=== PATIENT | female | born 1935 | race Caucasian/White ===

== ENCOUNTER 2020-09-24 00:18 | Inpatient (IN) ==
[2020-09-24] MEDS ORDERED: MoRPHine SULFATE 4 MG/ML 1 ML CARP\\VIAL IV PRN (00:35)
[2020-09-24] MEDS ORDERED: ONDANSETRON INJ 2 MG/ML 2 ML VIAL IV STA (00:35)
--- NOTE | 2020-09-24 00:37 | Emergency Department Note ---
Impression & Plan Acute cholecystitis, Epigastric abdominal pain, Acute pancreatitis, Gallstones ED Provider Note NAME: ALTAGRACIA TREVIÑO AGE: 85 SEX: F : 1935 ARRIVES VIA: Walk-In INFORMANT: Patient, ED PROVIDER(S): Wilber Burr DO CHIEF COMPLAINT: Chest pain HPI: The patient is an 85-year-old female who presented to the emergency d [facility] for an evaluation of epigastric pain. The patient thought she was having indigestion. Her family members gave her some Tums and she did have an episode of nausea and then vomiting. The patient states the pain is moderately improved. She also noticed bilateral tingling in her upper extremities. The patient is currently being treated for non-small cell lung cancer. She does not have a history of pulmonary embolism. She denies having any leg pain or leg swelling. She states the pain was epigastric and went straight through to her back. She denies having any diarrhea. She denies having any rectal bleeding. She denies having any difficulty breathing at this time. She was recently treated with radiation and is scheduled to start chemotherapy upcoming but her laboratory studies did not allow this because her white blood cell count was too low. She denies having any fever or cough. She states her pain initially was worsened with palpation on her upper abdomen. ROS: See above HPI for pertinent positives & negatives. A total of 10 systems reviewed and were otherwise negative. PAST MEDICAL HISTORY: See Below PAST SURGICAL HISTORY: See Below FAMILY HISTORY: See Below SOCIAL HISTORY: See Below HOME MEDICATIONS: See Below ALLERGIES: See Below VITALS: See Below PHYSICAL EXAMINATION: GENERAL: The patient is awake and alert. The patient is somewhat anxious appearing. EYES: The conjunctivae are clear. The pupils are round and reactive. EARS, NOSE, MOUTH AND THROAT: The nose is without any evidence of any deformity. NECK: The neck is nontender and supple. RESPIRATORY: Normal respiratory effort is noted there is no evidence of wheezing rhonchi or rales CARDIOVASCULAR: Regular rate and rhythm noted there no murmurs rubs or gallops normal S1 normal S2. GASTROINTESTINAL: The abdomen is mildly distended. There is no tenderness guarding rigidity. MUSCULOSKELETAL/EXTREMITIES: There is no evidence of gross deformity full range of motion is noted in the hips and shoulders. SKIN: Trace pedal edema was noted. Skin was warm and dry. Pulses were symmetric in both feet. There was calf tenderness noticed on the left to palpation. NEUROLOGIC: Patient is awake alert and oriented x3. MEDICAL DECISION MAKING: The patient is an 85-year-old female who presented to the emergency department for an evaluation of epigastric pain. The patient had an acute onset of epigastric pain as well as back pain. She did not have a pulsatile mass on physical exam. The patient's pain improved significantly. She was treated with IV pain medication and IV antiemetics. She was also given IV antibiotics. Laboratory studies did reveal an elevation in her LFTs as well as her lipase. Ultrasound did reveal signs of kidney stones as well as a dilated gallbladder and possible signs of cholecystitis. I discussed the patient's laboratory and radiographic studies with her. Given her findings the [facility] was notified about the patient. The patient may require further inpatient management and testing. Triage Nursing notes reviewed. Prior medical records reviewed Vital Signs: reviewed and remarkable for elevated blood pressure. Differential diagnosis: Cardiac ischemia, aortic dissection, pulmonary embolism, pneumothorax, pneumonia, pericarditis, myocarditis, esophageal rupture, GERD, cholecystitis, pancreatitis, musculoskeletal, as well as other pathologies. ER treatment provided: See below Diagnostics interpreted by me: ECG: EKG was obtained in the emergency department. My interpretation is normal sinus rhythm at 65 bpm. There was no ectopy. Inferior T wave inversions were noted. No previous tracing was available. Cardiac Monitoring: An order was placed for continuous cardiac monitoring. The monitor shows a rate of 87 bpm with sinus rhythm. Laboratory studies: As stated above and show below. Imaging studies: See below Consultation(s): 0225: I discussed this case with Dr. Gill who is on-call for the [facility] hospitalist group. He is agreed to evaluate the patient in the emergency department. 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 Beliefs That Will Affect Care: None and Nondenominational marital status: / Current Living Situation: Alone current occupational status: retired Other Information That Helps Us Care for You: No Feels Safe at Home: Yes Safety Concerns: Feels Safe At This Time Diet Comment: Avoids salad and dairy caffeine: Yes Dental Care, Regularly: Yes Physical Activity Frequency: 5-6 Times per Week Assistive Devices: Hearing Aid - Bilateral Allergies Allergies Allergy/AdvReac Type Severity Reaction Status Date / Time cat dander Allergy itchy Verified 09/24/20 01:46 eyes, sneeze strawberry Allergy Anaphylaxis Verified 09/24/20 01:46 Home Meds Home Medications Medication Instructions Recorded Confirmed ascorbic acid (vitamin C) 500 mg 500 mg PO DAILY cap 07/07/20 09/24/20 capsule aspirin 81 mg chewable tablet 81 mg PO DAILY 07/07/20 09/24/20 cranberry 500 mg capsule 500 mg PO DAILY cap 07/07/20 09/24/20 zinc gluconate 50 mg tablet 50 mg PO DAILY 07/07/20 09/24/20 fexofenadine 60 mg tablet (Josefa 60 mg PO DAILY tab 08/07/20 09/24/20 Allergy) cholecalciferol (vitamin D3) 25 25 mcg PO BID 09/24/20 09/24/20 mcg (1,000 unit) tablet (Vitamin D3) metoprolol succinate 50 mg 50 mg PO DAILY 09/24/20 09/24/20 tablet,extended release 24 hr olmesartan 40 mg tablet 40 mg PO DAILY 09/24/20 09/24/20 vit C 250 mg-vit E 90 mg-zinc 40 1 tab PO QAM 09/24/20 09/24/20 mg-copper 1 [id number] capsule (PreserVision AREDS-2) Previous Rx's Medication Instructions Recorded nystatin-triamcinolone 100,000 1 applic TOPICAL QID #60 g 07/10/20 unit/gram-0.1 % topical ointment clobetasol 0.05 % topical ointment 1 applic TOPICAL BID #60 g 09/14/20 Results & Data (ED) Vital Signs Vital Signs - 24 hr 09/24/20 00:21 09/24/20 00:58 09/24/20 01:03 Temperature 36 C L Temperature Source Temporal Artery Scan Pulse Rate 77 87 Pulse Rate [Finger] 84 Respiratory Rate 20 Blood Pressure 187/74 H Blood Pressure [Right Arm] 157/80 H Blood Pressure Mean 111 Blood Pressure Mean [Right Arm] 105 Pulse Oximetry 98 98 97 Oxygen Delivery Method Room Air Room Air Room Air Sepsis Recent Fever Within 48 Hours No Sepsis New/Unexplained Change in Mental Status No Sepsis Action Taken by Nursing No Action Required 09/24/20 02:24 Temperature Temperature Source Pulse Rate Pulse Rate [Finger] 87 Respiratory Rate Blood Pressure Blood Pressure [Right Arm] 163/90 H Blood Pressure Mean Blood Pressure Mean [Right Arm] 114 Pulse Oximetry 98 Oxygen Delivery Method Room Air Sepsis Recent Fever Within 48 Hours Sepsis New/Unexplained Change in Mental Status Sepsis Action Taken by [facility] Medications Current Medication List: was personally reviewed by me Laboratory Data Attestation: I reviewed the patient's lab results. Result diagrams: 09/24/20 00:40 09/24/20 05:33 Lab Results 09/24/20 09/24/20 09/24/20 Range/Units 00:40 00:40 00:40 WBC 5.23 (4.8-10.8) K/uL RBC 4.66 (4.2-5.4) M/uL Hgb 14.3 (12.0-16.0) g/dL Hct 41.2 (37-47) % MCV 88.4 (80-100) fL MCH 30.7 (25-34) pg MCHC 34.7 (32-36) g/dL RDW Std Deviation 43.7 (36.4-46.3) fL RDW Coeff of Katarzyna 13.5 (11.5-14.5) % Plt Count 140 (130-400) K/uL MPV 10.2 (7.4-10.4) fL Immature Gran % (Auto) 0.6 % Neut % (Auto) 79.3 % Lymph % (Auto) 11.5 % [place] % (Auto) 8.2 % Eos % (Auto) 0.2 % Baso % (Auto) 0.2 % Neut # (Auto) 4.15 (1.4-6.5) K/uL Lymph # (Auto) 0.60 L (1.2-3.4) K/uL [place] # (Auto) 0.43 (0.11-0.59) K/uL Eos # (Auto) 0.01 (0-0.5) K/uL Baso # (Auto) 0.01 (0-0.2) K/uL Immature Gran # (Auto) 0.03 H (0.00-0.02) K/uL PT 10.8 (9.0-12.0) Seconds INR 1.1 (0.9-1.1) APTT 21.6 (21.0-31.0) Seconds PTT Ratio 0.8 Sodium 140 (136-145) mmol/L Potassium 3.9 (3.5-5.1) mmol/L Chloride 107 (98-107) mmol/L Carbon Dioxide 25 (21-32) mmol/L Anion Gap 8.0 (3-11) BUN 11 (7-18) mg/dl Creatinine 0.72 (0.6-1.2) mg/dl Est Cr Clr Drug Dosing 51.9 ml/min Est GFR ( Amer) 88.5 ml/min Est GFR (Non-Af Amer) 76.4 ml/min BUN/Creatinine Ratio 15.7 (10-20) Glucose 188 H (70-99) mg/dl Calcium 9.4 (8.5-10.1) mg/dl Total Bilirubin 2.3 H (0.2-1) mg/dl AST 179 H (15-37) U/L ALT 107 H (12-78) U/L Alkaline Phosphatase 224 H (45-117) U/L Troponin I < 0.015 (0-0.045) ng/ml Total Protein 7.3 (6.4-8.2) gm/dl Albumin 3.4 (3.4-5.0) gm/dl Globulin 3.9 (2.5-4.0) gm/dl Albumin/Globulin Ratio 0.9 (0.9-2) Lipase 684 H (73-393) U/L Urine Color Urine Appearance (Clear) Urine pH (4.5-7.5) Ur Specific [place] (1.000-1.030) Urine Protein (Negative) Urine Glucose (UA) (Negative) Urine Ketones (Negative) Urine Blood (Negative) Urine Nitrite (Negative) Urine Bilirubin (Negative) Urine Urobilinogen (Negative) Ur Leukocyte Esterase (Negative) Urine WBC (Auto) (0-5) /hpf Urine RBC (Auto) (0-4) /hpf U Hyaline Cast (Auto) (0-5) /lpf U Epithel Cells (Auto) (0-5) /lpf Urine Bacteria (Auto) (Negative) COVID-19 Eval Order SARS-CoV-2 (PCR) (Negative) 09/24/20 09/24/20 09/24/20 Range/Units 01:00 01:33 01:33 WBC (4.8-10.8) K/uL RBC (4.2-5.4) M/uL Hgb (12.0-16.0) g/dL Hct (37-47) % MCV (80-100) fL MCH (25-34) pg MCHC (32-36) g/dL RDW Std Deviation (36.4-46.3) fL RDW Coeff of Katarzyna (11.5-14.5) % Plt Count (130-400) K/uL MPV (7.4-10.4) fL Immature Gran % (Auto) % Neut % (Auto) % Lymph % (Auto) % [place] % (Auto) % Eos % (Auto) % Baso % (Auto) % Neut # (Auto) (1.4-6.5) K/uL Lymph # (Auto) (1.2-3.4) K/uL [place] # (Auto) (0.11-0.59) K/uL Eos # (Auto) (0-0.5) K/uL Baso # (Auto) (0-0.2) K/uL Immature Gran # (Auto) (0.00-0.02) K/uL PT (9.0-12.0) Seconds INR (0.9-1.1) APTT (21.0-31.0) Seconds PTT Ratio Sodium (136-145) mmol/L Potassium (3.5-5.1) mmol/L Chloride (98-107) mmol/L Carbon Dioxide (21-32) mmol/L Anion Gap (3-11) BUN (7-18) mg/dl Creatinine (0.6-1.2) mg/dl Est Cr Clr Drug Dosing ml/min Est GFR ( Amer) ml/min Est GFR (Non-Af Amer) ml/min BUN/Creatinine Ratio (10-20) Glucose (70-99) mg/dl Calcium (8.5-10.1) mg/dl Total Bilirubin (0.2-1) mg/dl AST (15-37) U/L ALT (12-78) U/L Alkaline Phosphatase (45-117) U/L Troponin I (0-0.045) ng/ml Total Protein (6.4-8.2) gm/dl Albumin (3.4-5.0) gm/dl Globulin (2.5-4.0) gm/dl Albumin/Globulin Ratio (0.9-2) Lipase (73-393) U/L Urine Color Dark Yellow Urine Appearance Clear (Clear) Urine pH 6.0 (4.5-7.5) Ur Specific [place] 1.023 (1.000-1.030) Urine Protein 1+ H (Negative) Urine Glucose (UA) Negative (Negative) Urine Ketones 2+ H (Negative) Urine Blood 1+ H (Negative) Urine Nitrite Negative (Negative) Urine Bilirubin 1+ H (Negative) Urine Urobilinogen Negative (Negative) Ur Leukocyte Esterase Trace H (Negative) Urine WBC (Auto) 1-5 (0-5) /hpf Urine RBC (Auto) 10-30 H (0-4) /hpf U Hyaline Cast (Auto) 1-5 (0-5) /lpf U Epithel Cells (Auto) >30 H (0-5) /lpf Urine Bacteria (Auto) Negative (Negative) COVID-19 Eval Order Covid19 at [facility] SARS-CoV-2 (PCR) NEGATIVE (Negative) Administered Medications Sodium Chloride (Nss 1000ml) 1,000 mls @ 125 mls/hr IV .Q8H [facility]SMAN Stop: 10/24/20 06:29 Last Admin: 09/24/20 07:55 Dose: 125 mls/hr Documented by: [id number] Piperacillin Sod/Tazobactam (Sod 3.375 gm/ Dextrose) 115 mls @ 28.75 mls/hr IV Q8H [facility]; Protocol Stop: 09/26/20 07:59 Last Admin: 09/24/20 07:55 Dose: 28.8 mls/hr Documented by: [id number] Metoprolol Succinate (Metoprolol Succ 50mg Ext Rel Tab) 50 mg PO DAILY [facility] Stop: 10/24/20 08:59 Last Admin: 09/24/20 09:01 Dose: Not Given Documented by: [id number] Olmesartan (Olmesartan Medoxomil 40 Mg Tab) 40 mg PO DAILY [facility] Stop: 10/24/20 08:59 Last Admin: 09/24/20 08:54 Dose: 40 mg Documented by: [id number] Discontinued Medications Pantoprazole Sodium 40 mg/ (Syringe) 10 mls @ 5 mls/min IV NOW ONE Stop: 09/24/20 01:12 Last Admin: 09/24/20 01:29 Dose: 5 mls/min Documented by: [id number] Famotidine (Pepcid 20mg Iv Push) 20 mg in 5 mls @ 2.5 mls/min IV NOW STA Stop: 09/24/20 01:12 Last Admin: 09/24/20 01:29 Dose: 2.5 mls/min Documented by: [id number] Piperacillin Sod/Tazobactam Sod (Zosyn) 4.5 gm in 120 mls @ 240 mls/hr IV NOW ONE Stop: 09/24/20 02:38 Last Infusion: 09/24/20 02:53 Dose: 0 mls/hr Documented by: [id number] Admin: 09/24/20 02:21 Dose: 240 mls/hr Documented by: [id number] Sodium Chloride (Nss 1000ml) 2,000 mls @ 999 mls/hr IV .Q2H1M ONE Stop: 09/24/20 06:31 Last Infusion: 09/24/20 07:55 Dose: 0 mls/hr Documented by: [id number] Admin: 09/24/20 05:31 Dose: 999 mls/hr Documented by: [id number] Ioversol (Optiray 320 100ml) 95 ml IV ONCE ONE Stop: 09/24/20 03:22 Last Admin: 09/24/20 03:21 Dose: 95 ml Documented by: [id number] Morphine Sulfate (Morphine Sulfate 4 Mg/Ml 1 Ml Carp\Vial) 4 mg IV Q15M PRN PRN Reason: Pain Stop: 10/08/20 00:34 Last Admin: 09/24/20 00:47 Dose: 4 mg Documented by: [id number] Ondansetron HCl (Ondansetron Inj 2 Mg/Ml 2 Ml Vial) 4 mg IV NOW STA Stop: 09/24/20 00:36 Last Admin: 09/24/20 00:47 Dose: 4 mg Documented by: [id number] Imaging Data Attestation: I personally reviewed and interpreted this imaging study as follows: My Impression: KUB was obtained in the emergency department. My interpretation is nonspecific bowel gas pattern noted. There was no free air. No acute disease was noted 1 view chest x-ray was obtained in the emergency department. My interpretation is heart size is normal. There is no free air or infiltrate. There was s hadowing noted in the left upper lung field. This could be consistent with the patient's known history of non-small cell carcinoma. Radiologist's Impression: Chest X-Ray 09/24/20 00:35 XR chest 1V portable CLINICAL HISTORY: epigastric pain COMPARISON STUDY: No previous studies for comparison. FINDINGS: No pneumothorax. No pleural effusion. Hazy opacity is seen within left suprahilar region and could represent atelectasis or consolidative process within left upper lung. Cardiomediastinal silhouette is within normal limits in size. No significant pulmonary vascular congestion.. Aorta is calcified. Osseous structures: Degenerative changes of the spine. IMPRESSION: 1. Left suprahilar opacity might represent atelectasis or pneumonia. ACT 112: Negative or not required by law. The above report was generated using voice recognition software. It may contain grammatical, syntax or spelling errors. Electronically signed by: Jovita Mao DO 09/24/2020 8:58 AM KUB X-Ray 09/24/20 00:35 XR KUB/Abdomen 1 view CLINICAL HISTORY: epigastric pain COMPARISON STUDY: No previous studies for comparison. FINDINGS: Multiple gas and stool filled nondilated loops of bowel are seen throughout the abdomen. Large amount of stool is seen within left hemiabdomen. Lung apices are outside the [id number] which limits evaluation. Mild lumbar scoliosis and degenerative changes of the spine are seen. Calcified densities are seen within the right pelvic region which might represent phleboliths. IMPRESSION: 1. Constipation pattern. ACT 112: Negative or not required by law. The above report was generated using voice recognition software. It may contain grammatical, syntax or spelling errors. Electronically signed by: Jovita Mao DO 09/24/2020 9:00 AM Gallbladder Ultrasound 09/24/20 01:09 ULTRASOUND RIGHT UPPER QUADRANT ABDOMEN CLINICAL HISTORY: Epigastric abdominal pain. COMPARISON STUDY: Abdominal radiograph dated 09/24/2020. TECHNIQUE: Real-time, grayscale, and color flow sonography of the right upper quadrant of the abdomen was performed. Images are reviewed in the transverse and longitudinal planes. FINDINGS: Liver: The liver is normal in size and echotexture. There is no intrahepatic biliary ductal dilatation. The main portal vein is patent. Gallbladder: There are numerous shadowing calcified gallstones. The gallbladder is distended. The gallbladder wall appears mildly thickened and edematous measuring up to 4 mm. A sonographic Yin's sign is reportedly absent. The common bile duct measures up to 0.5 cm in diameter. Pancreas: Visualized portions of the pancreatic head and body are normal in appearance. The splenic vein is patent. Right kidney: Survey images of the right kidney demonstrate mild cortical atrophy. Echotexture is normal. There is no hydronephrosis. Ascites: None. IMPRESSION: Cholelithiasis within a distended gallbladder. The bladder wall appears mildly thickened and edematous, and findings are suspicious for acute cholecystitis. ACT 112: Negative or not required by law. Electronically signed by: Mina Amor M.D. 09/24/2020 6:53 AM Abdomen/Pelvis CT 09/24/20 02:46 CT SCAN OF THE ABDOMEN AND PELVIS WITH IV CONTRAST CLINICAL HISTORY: Upper abdominal pain. COMPARISON STUDY: Abdominal ultrasound dated 09/24/2020. Chest CT dated 05/09/2020. PET CT dated 05/20/2020. TECHNIQUE: Following the IV administration of 95 cc of Optiray 320, CT scan of the abdomen and pelvis is performed from the lung bases to the proximal femora. Images are reviewed in the axial, sagittal, and coronal planes. IV contrast was administered without complication. A dose lowering technique was utilized adhering to the principles of ALARA. CT DOSE: 329.66 mGy.cm FINDINGS: Lung bases: The heart is normal in size and without pericardial effusion. The lung bases are clear noting bibasilar scarring/atelectasis. A small to moderate hiatal hernia is noted. Liver: The contrast-enhanced liver is normal in size, contour, and attenuation. There is no intrahepatic biliary ductal dilatation. The hepatic veins and portal veins are patent. Gallbladder: The gallbladder is distended and there are numerous gallstones. The gallbladder wall is thickened and edematous and there is pericholecystic stranding and fluid. Findings are consistent with acute cholecystitis. Spleen: Normal in size and attenuation. Pancreas: Unremarkable. Adrenal glands: Unremarkable. Kidneys: The contrast enhanced kidneys demonstrate cortical atrophy and are without hydronephrosis. Numerous renal sinus cysts are seen bilaterally. The kidneys enhance symmetrically. Abdominal vasculature: The abdominal aorta is normal in course and caliber noting moderate to advanced atherosclerotic calcification. Bowel: There is moderate colonic diverticulosis without CT evidence of acute diverticulitis. Mild fecal retention is seen throughout the colon. No bowel obstruction is identified. The appendix is well-visualized and normal. Peritoneum: There is no intraperitoneal free air or abdominal ascites. A 1.7 cm necrotic nodule is noted in the left upper quadrant anterior spleen on image #[id number]. Lymphadenopathy: None. Pelvic viscera: The bladder, uterus, and adnexa are normal as visualized. Skeletal structures: The skeletal structures are osteopenic. There is moderate to advanced lumbosacral spondylosis. No lytic or blastic lesions are seen. IMPRESSION: 1. Cholelithiasis with acute cholecystitis. 2. There is a heterogeneous low-attenuation 1.7 cm nodule in the left upper quadrant adjacent to the splenic artery. This is pathologically indeterminant, and could represent thrombosed aneurysm, a metastatic deposit, or possibly an infarcted splenule. This was also seen on the 05/20/2020 PET examination and was not demonstrably FDG avid. 3. Colonic diverticulosis without CT evidence of acute diverticulitis. 4. Additional findings as above. ACT 112: Negative or not required by law. Electronically signed by: Mina Amor M.D. 09/24/2020 9:13 AM Discharge Plan Visit Data Chief Complaint: Cardiac Assessment Stated Complaint: CHEST HEAVY,TINGLING IN HANDS ED Provider: Wilber Burr Discharge Problem: Acute cholecystitis, Epigastric abdominal pain, Acute pancreatitis, Gallstones Patient Disposition: Admitted As Inpatient Condition: Good Discharge Instructions Interventions: ED Discharge Assessment Last Done: 09/24/20 04:02
[2020-09-24 00:50] LABS: Basophils # (auto) 0.01 K/uL (0-0.2); Basophils % (auto) 0.2 %; Eosinophils # (auto) 0.01 K/uL (0-0.5); Eosinophils % (auto) 0.2 %; Hematocrit (blood only) 41.2 % (37-47); Hemoglobin 14.3 g/dL (12.0-16.0); Immature Granulocytes # (auto) 0.03 K/uL (0.00-0.02); Immature Granulocytes % (auto) 0.6 %; Lymphocytes % (auto) 11.5 %; Mean Corpuscular Hemoglobin 30.7 pg (25-34); Mean Corpuscular Hgb Conc 34.7 g/dL (32-36); Mean Corpuscular Volume 88.4 fL (80-100); Mean Platelet Volume 10.2 fL (7.4-10.4); Monocytes # (auto) 0.43 K/uL (0.11-0.59); Monocytes % (auto) 8.2 %; Neutrophils # (auto) 4.15 K/uL (1.4-6.5); Neutrophils % (auto) 79.3 %; Platelet Count 140 K/uL (130-400); RDW Coefficient of Variation 13.5 % (11.5-14.5); RDW Standard Deviation 43.7 fL (36.4-46.3); Red Blood Count 4.66 M/uL (4.2-5.4); White Blood Count 5.23 K/uL (4.8-10.8)
[2020-09-24 01:00] LABS: INR 1.1 (0.9-1.1); Partial Thromboplastin Ratio 0.8; Partial Thromboplastin Time 21.6 Seconds (21.0-31.0); Prothrombin Time 10.8 Seconds (9.0-12.0)
[2020-09-24 01:06] LABS: Alanine Aminotransferase 107 U/L (12-78); Albumin Level 3.4 gm/dl (3.4-5.0); Aspartate Aminotransferase 179 U/L (15-37); BUN Creatinine Ratio 15.7 (10-20); Blood Urea Nitrogen 11 mg/dl (7-18); Calcium 9.4 mg/dl (8.5-10.1); Carbon Dioxide 25 mmol/L (21-32); Chloride 107 mmol/L (98-107); Creatinine Clr Calc Pharmacy 51.9 ml/min; Est GFR (African American) 88.5 ml/min; Est GFR (Non-African American) 76.4 ml/min; Glucose 188 mg/dl (70-99); Lipase 684 U/L (73-393); Potassium 3.9 mmol/L (3.5-5.1); Sodium 140 mmol/L (136-145)
[2020-09-24 01:11] LABS: Albumin Globulin Ratio 0.9 (0.9-2); Alkaline Phosphatase 224 U/L (45-117); Bilirubin,Total 2.3 mg/dl (0.2-1); Globulin 3.9 gm/dl (2.5-4.0); Total Protein 7.3 gm/dl (6.4-8.2); Troponin I < 0.015 ng/ml (0-0.045)
[2020-09-24] MEDS ORDERED: FAMOTIDINE 20MG IV PUSH 20 MG/5 ML SYR IV STA (01:11)
[2020-09-24] MEDS ORDERED: PANTOprazole 40 MG in SYRINGE 0 ML IV ONE (01:11)
[2020-09-24 01:15] LABS: Appearance Urine Clear (Clear); Bacteria Urine Automated Negative (Negative); Blood Urine 1+ (Negative); Color Urine Dark Yellow; Epithelial Cell Urine Auto >30 /lpf (0-5); Glucose Urine UA Negative (Negative); Ketones Urine 2+ (Negative); Leukocyte Esterase Urine Trace (Negative); Nitrite Urine Negative (Negative); Protein Urine 1+ (Negative); Specific Gravity Urine 1.023 (1.000-1.030); Urobilinogen Urine Negative (Negative)
[2020-09-24 01:28] LABS: Bilirubin Urine 1+ (Negative)
[2020-09-24] MEDS ORDERED: PIPERACILL/TAZOBAC CONSULT ACTIVE PRN (02:09)
[2020-09-24] MEDS ORDERED: PIPERACILLIN/TAZOBACTAM 4.5 GM/120 ML BAG IV ONE (02:09)
[2020-09-24] MEDS ORDERED: OPTIRAY 320 100ml IV ONE (03:21)
--- NOTE | 2020-09-24 03:23 | History & Physical Report ---
Date of Service September 24, 2020 Assessment & Plan (1) Epigastric abdominal pain: Plan: Mrs. Wood is an 85 yo woman here today for evaluation of epigastric pain, thought to be secondary to acute pancreatitis. - lipase level of 684 (although not 3 x the upper limit of normal, may not have drawn it at its peak) - Suspect gallstone pancreatitis given cholestatic pattern of liver injury (AST 179, ALT 107, Alk Phos 224, T bili 2.3, R value of 1.4). Gallbladder US and A/P cat scan pending. MCRP not available overnight on weekends. - No eoth use. Ca normal. Will check a fasting lipid panel in am to assess TG level. Structural abnormalities of pancreas seem unlikely - however given concurrent diagnosis of cancer, metastatic spread is possible (although spread to another solid organ would be rare from a non-small cell primary). Await CT results. - toradol 15mg (mild) and morphine (severe) 1mg - for analgesia - zofran prn for nausea - NSS 2 liters bolus ordered + maintenance rate of 125mls/hr thereafter - NPO for bowel rest (2) Non-small cell lung cancer: Plan: - s/p 6 week course of radiation at [facility] - has not yet begun chemo (3) Total bilirubin, elevated: Plan: - T bili 2.3 - direct level ordered - suspect secondary to biliary obstruction DVT ppx: Lovenox Diet: NPO Dispo: Med/surg Code: Full, I discussed with patient History of Present Illness Primary Care Provider: Stanton Braga DO Mrs. Solano is an 85 yo woman who came to the [facility] ED for evaluation of epigastric pain that began around 8pm last night, several hours after eating dinner. She tried taking TUMS for relief, but later had an episode of nausea and vomiting. She denies an associated diarrhea. She states that she was in her usual state of health until the discomfort started - no preceding fevers/chills, congestion, cough, generalized weakness, diarrhea. She denies any history of pancreatitis or other GI medical problems. No previous abdominal surgeries. Of note, she is currently undergoing treatment for non-small cell lung cancer. She completed 6 weeks of radiation - will be starting chemo in the near future. She had the radiation done at our cancer center - although it is under the direction of her oncologist in [place], [place]. She denies any eoth use. In the ED, she was afebrile with normal HR. BP was 163/90. Breathing well on room air. CBC unremarkable. Coags WNL. Kidney function and electrolytes WNL. UA showing + blood, + bilirubin, neg nitrate, trace LE, neg bacteria. AST elevated to 179, ALT to 107, Alk phos at 224, t bili at 2.3. Lipase elevated to 684. Troponin undetectable. COVID 19 neg. EKG showing NSR with inferior T wave inversions, no ectopy. CXR showing a mass in the left upper lung lobe (location of known cancer). US of gallbladder Allergies Allergy/AdvReac Type Severity Reaction Status Date / Time cat dander Allergy itchy Verified 09/24/20 01:46 eyes, sneeze strawberry Allergy Anaphylaxis Verified 09/24/20 01:46 Home Medications Medication Instructions Recorded Confirmed Type nystatin-triamcinolone 100,000 1 applic TOPICAL QID #60 g 07/10/20 09/24/20 Rx unit/gram-0.1 % topical ointment fexofenadine 60 mg tablet (Josefa 60 mg PO DAILY tab 08/07/20 09/24/20 History Allergy) clobetasol 0.05 % topical ointment 1 applic TOPICAL BID #60 g 09/14/20 09/24/20 Rx metoprolol succinate 50 mg 50 mg PO DAILY 09/24/20 09/24/20 History tablet,extended release 24 hr olmesartan 40 mg tablet 40 mg PO DAILY 09/24/20 09/24/20 History ketorolac 15 mg/mL injection 15 mg IV Q6H PRN #1 ml 09/25/20 Rx solution morphine 2 mg/mL intravenous 1 mg IV Q30M PRN #1 ml 09/25/20 Rx syringe ondansetron HCl (PF) 4 mg/2 mL 4 mg IV Q6H PRN #2 ml 09/25/20 Rx injection solution Past Med/Surg History Medical History Arthritis Cataract (lens) fragments in eye following cataract surgery, bilateral Falls Hypertension Non-small cell lung cancer Skin cancer Surgical History H/O dilation and curettage Status post left breast lumpectomy Benign [place] teeth extracted Family History Denies family history of Ovarian cancer Breast cancer Colorectal cancer Social History Smoking Status: Never smoker Hx Alcohol Use: No Hx Substance Use: No Preferred Language: Palestinian Communication Ability: Effective Hearing Ability: Hard of Hearing 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 Beliefs That Will Affect Care: None and Mormon marital status: / Current Living Situation: Alone current occupational status: retired Other Information That Helps Us Care for You: No Feels Safe at Home: Yes Safety Concerns: Feels Safe At This Time Diet Comment: Avoids salad and dairy caffeine: Yes Dental Care, Regularly: Yes Physical Activity Frequency: 5-6 Times per Week Assistive Devices: Glasses, Hearing Aid - Bilateral and Walker Review of Systems Review of Systems: All systems reviewed & are unremarkable except as noted in HPI & below Physical Exam Constitutional: WD/WN, vitals as above cooperative; no acute distress Eyes: + anicteric sclerae ENMT: external ear and nose normal, oropharynx normal Ears: + hearing impairment Neck: trachea midline Respiratory: normal respiratory effort, lungs clear to auscultation no cough Cardiovascular: RRR, no murmur, no edema Heart Sounds: normal S1 Extremities: no pedal edema Gastrointestinal (Abdomen): Inspection/Auscultation: abdomen normal to inspection and normal bowel sounds; abdomen not distended Percussion/Palpation: + abdomen tender (RUQ, epigastrium) and abdomen soft; no guarding Musculoskeletal: Head/Neck/Chest: normocephalic and head atraumatic Skin: no rashes, warm and dry Neurologic: moves all extremities Psychiatric: A+Ox3, euthymic affect Results & Data Results & Data ([facility]) Vital Signs (Past 12 Hours) Vital Signs Temp Pulse Pulse Resp BP BP Pulse Ox 09/24/20 02:24 87 163/90 H 98 09/24/20 01:03 87 97 09/24/20 00:58 84 157/80 H 98 09/24/20 00:21 36 C L 77 20 187/74 H 98 Code Status & VTE Plan VTE Prophylaxis Plan VTE Prophylaxis will be ordered: Yes Supervising Physician Co-Signing Physician Notes Attending addendum: I have physically seen this patient, have supervised the medical residents activities, and agree with the H&P unless as otherwise noted. Assessment and Plan: Epigastric pain/presumptive gallstone pancreatitis Gallbladder ultrasound nonrevealing CT scan abdomen pelvis pending MRCP cannot be done until the morning due to the weekend NPO Zosyn 4.5 g IV every 8 hours NSS at 25 mils per hour Consult to gastroenterology for the a.m. Remaining orders and notations as noted Resident Activity Tracking Resident Involvement: Resident Care Provided Care Provided: Adult Hospital Medicine
[2020-09-24] MEDS ORDERED: SODIUM CHLORIDE 0.9% 1000ML 2,000 ML IV ONE (04:31)
[2020-09-24] MEDS ORDERED: ONDANSETRON INJ 2 MG/ML 2 ML VIAL IV PRN (04:31)
[2020-09-24] MEDS ORDERED: MoRPHine SULFATE 2 MG/ML CARP IV PRN (04:31)
[2020-09-24 06:46] LABS: Chol HDL Ratio 6; Cholesterol 140 mg/dl (0-200); HDL Cholesterol 24 mg/dl; LDL Cholesterol Calculated 88 mg/dl; Triglycerides 142 mg/dl (0-150); VLDL Cholesterol 28 mg/dl
[2020-09-24 06:54] LABS: Albumin Level 2.9 gm/dl (3.4-5.0); BUN Creatinine Ratio 15.2 (10-20); Bilirubin Direct 1.9 mg/dl (0-0.2); Calcium 8.9 mg/dl (8.5-10.1); Creatinine Clr Calc Pharmacy 53.1 ml/min; Est GFR (African American) 92.9 ml/min; Est GFR (Non-African American) 80.2 ml/min; Potassium 3.9 mmol/L (3.5-5.1)
--- NOTE | 2020-09-24 06:54 | Ultrasound Report ---
ULTRASOUND RIGHT UPPER QUADRANT ABDOMEN CLINICAL HISTORY: Epigastric abdominal pain. COMPARISON STUDY: Abdominal radiograph dated 09/24/2020. TECHNIQUE: Real-time, grayscale, and color flow sonography of the right upper quadrant of the abdomen was performed. Images are reviewed in the transverse and longitudinal planes. FINDINGS: Liver: The liver is normal in size and echotexture. There is no intrahepatic biliary ductal dilatatio n. The main portal vein is patent. Gallbladder: There are numerous shadowing calcified gallstones. The gallbladder is distended. The gal lbladder wall appears mildly thickened and edematous measuring up to 4 mm. A sonographic Yin's sig n is reportedly absent. The common bile duct measures up to 0.5 cm in diameter. Pancreas: Visualized portions of the pancreatic head and body are normal in appearance. The splenic v ein is patent. Right kidney: Survey images of the right kidney demonstrate mild cortical atrophy. Echotexture is nor mal. There is no hydronephrosis. Ascites: None. IMPRESSION: Cholelithiasis within a distended gallbladder. The bladder wall appears mildly thickened and edematous, and findings are suspicious for acute cholecystitis. ACT 112: Negative or not required by law. Electronically signed by: Mina Amor M.D. 09/24/2020 6:53 AM
[2020-09-24 07:00] LABS: Albumin Globulin Ratio 0.9 (0.9-2); Globulin 3.3 gm/dl (2.5-4.0); Total Protein 6.2 gm/dl (6.4-8.2)
--- NOTE | 2020-09-24 07:34 | Electrocardiogram Report ---
Test Reason : Blood Pressure : / mmHG Vent. Rate : 065 BPM Atrial Rate : 065 BPM P-R Int : 144 ms QRS Dur : 074 ms QT Int : 436 ms P-R-T Axes : 019 -16 -03 degrees QTc Int : 453 ms Normal sinus rhythm Moderate voltage criteria for LVH, may be normal variant Borderline ECG No previous ECGs available Confirmed by Tre Olmstead ([id number]) on 09/24/2020 7:33:58 AM Referred By: REFERRED SELF Confirmed By:Bravo Olmstead
[2020-09-24] MEDS: SODIUM CHLORIDE 0.9% 1000ML 1,000 ML IV SCH ×2 (07:55→16:58)
[2020-09-24] MEDS: PIPERACILLIN/TAZOBACTAM 3.375 GM in DEXTROSE 5% 100 ML IV SCH ×2 (07:55→16:53)
[2020-09-24] MEDS: OLMESARTAN MEDOXOMIL 40 MG TAB PO SCH (08:54)
--- NOTE | 2020-09-24 08:59 | XRay Report ---
XR chest 1V portable CLINICAL HISTORY: epigastric pain COMPARISON STUDY: No previous studies for comparison. FINDINGS: No pneumothorax. No pleural effusion. Hazy opacity is seen within left suprahilar region and could represent atelectasis or consolidative p rocess within left upper lung. Cardiomediastinal silhouette is within normal limits in size. No significant pulmonary vascular congestion.. Aorta is calcified. Osseous structures: Degenerative changes of the spine. IMPRESSION: 1. Left suprahilar opacity might represent atelectasis or pneumonia. ACT 112: Negative or not required by law. The above report was generated using voice recognition software. It may contain grammatical, syntax o r spelling errors. Electronically signed by: Jovita Mao DO 09/24/2020 8:58 AM
[2020-09-24] MEDS ORDERED: METOPROLOL SUCC 50MG EXT REL TAB PO SCH (09:00)
--- NOTE | 2020-09-24 09:01 | XRay Report ---
XR KUB/Abdomen 1 view CLINICAL HISTORY: epigastric pain COMPARISON STUDY: No previous studies for comparison. FINDINGS: Multiple gas and stool filled nondilated loops of bowel are seen throughout the abdomen. Large amount of stool is seen within left hemiabdomen. Lung apices are outside the [id number] which limits evaluation. Mild lumbar scoliosis and degenerative changes of the spine are seen. Calcified densities are seen within the right pelvic region which might represent phleboliths. IMPRESSION: 1. Constipation pattern. ACT 112: Negative or not required by law. The above report was generated using voice recognition software. It may contain grammatical, syntax o r spelling errors. Electronically signed by: Jovita Mao DO 09/24/2020 9:00 AM
[2020-09-24] MEDS ORDERED: LORazepam 0.5 MG/1 ML VIAL IV PRN (09:07)
--- NOTE | 2020-09-24 09:14 | CT Scan Report ---
CT SCAN OF THE ABDOMEN AND PELVIS WITH IV CONTRAST CLINICAL HISTORY: Upper abdominal pain. COMPARISON STUDY: Abdominal ultrasound dated 09/24/2020. Chest CT dated 05/09/2020. PET CT dated 05/21/19. TECHNIQUE: Following the IV administration of 95 cc of Optiray 320, CT scan of the abdomen and pelvi s is performed from the lung bases to the proximal femora. Images are reviewed in the axial, sagittal , and coronal planes. IV contrast was administered without complication. A dose lowering technique wa s utilized adhering to the principles of ALARA. CT DOSE: 329.66 mGy.cm FINDINGS: Lung bases: The heart is normal in size and without pericardial effusion. The lung bases are clear no ting bibasilar scarring/atelectasis. A small to moderate hiatal hernia is noted. Liver: The contrast-enhanced liver is normal in size, contour, and attenuation. There is no intrahepa tic biliary ductal dilatation. The hepatic veins and portal veins are patent. Gallbladder: The gallbladder is distended and there are numerous gallstones. The gallbladder wall is thickened and edematous and there is pericholecystic stranding and fluid. Findings are consistent wit h acute cholecystitis. Spleen: Normal in size and attenuation. Pancreas: Unremarkable. Adrenal glands: Unremarkable. Kidneys: The contrast enhanced kidneys demonstrate cortical atrophy and are without hydronephrosis. N umerous renal sinus cysts are seen bilaterally. The kidneys enhance symmetrically. Abdominal vasculature: The abdominal aorta is normal in course and caliber noting moderate to advance d atherosclerotic calcification. Bowel: There is moderate colonic diverticulosis without CT evidence of acute diverticulitis. Mild fec al retention is seen throughout the colon. No bowel obstruction is identified. The appendix is well- visualized and normal. Peritoneum: There is no intraperitoneal free air or abdominal ascites. A 1.7 cm necrotic nodule is no kimmie in the left upper quadrant anterior spleen on image #[id number]. Lymphadenopathy: None. Pelvic viscera: The bladder, uterus, and adnexa are normal as visualized. Skeletal structures: The skeletal structures are osteopenic. There is moderate to advanced lumbosacra l spondylosis. No lytic or blastic lesions are seen. IMPRESSION: 1. Cholelithiasis with acute cholecystitis. 2. There is a heterogeneous low-attenuation 1.7 cm nodule in the left upper quadrant adjacent to the splenic artery. This is pathologically indeterminant, and could represent thrombosed aneurysm, a meta static deposit, or possibly an infarcted splenule. This was also seen on the 05/20/2020 PET examination and was not demonstrably FDG avid. 3. Colonic diverticulosis without CT evidence of acute diverticulitis. 4. Additional findings as above. ACT 112: Negative or not required by law. Electronically signed by: Mina Amor M.D. 09/24/2020 9:13 AM
--- NOTE | 2020-09-24 10:03 | Surgery Consultation ---
Date of Consultation September 24, 2020 Assessment & Plan (1) Acute cholecystitis: This is an 85y F with a PMH of NSCLC who presented to the [facility] ED on 09/24/20 with abdominal pain, nausea/vomiting starting yesterday evening. Workup in the ER with a CT a/p and RUQ US revealed findings concerning for cholelithiasis with distended gallbladder, mildly thickened gallbladder wall, with concern for acute cholecystitis. WBC 5. LFT's elevated with Tb: 3, AST: 314, ALT: 188, AlkP: 202, Lipase: 210. Vital signs are stable. On examination patient's abdomen is soft and tender to palpation in the RUQ and epigastric regions. Due to concern for choledocholithiasis an MRCP has been ordered. If + for CBD stones/abnormality will benefit from a GI consultation for consideration of ERCP. Plan to keep NPO for now while awaiting MRCP results +/- GI consultation. If GI plans on ERCP we can see if we can coordinate procedures for same day. If no plans for procedures today can allow clears and make NPO at midnight and we will plan on lap shu this admission. -Pt also reports a history of claustrophobia with MRI's and states she has been given Ativan in the past. She does not think she can undergo MRI without medication for anxiety, but reports in the past being confused and out of it after receiving ativan... will let medicine decide on dosing and options of med like ativan prior to imaging. Supervising Physician Co-Signing Physician Notes As per Jasmyn Fuentes physician assistant district attorney Patient recently came back for an MRCP that showed some filling defect in the common bile duct she had been given some Ativan prior to procedure so he goes in and out 1 to fall asleep The abdomen is soft but she has right upper quadrant guarding The present situation was discussed with the patient and the daughter given the fact that she has a common bile duct filling defect recommend to proceed with gastroenterology see the patient for an ERCP and hopefully coordinated at the same time we can proceed with laparoscopic cholecystectomy this was discussed with the patient and daughter and like to proceed accordingly Of note the patient states that she is always had slight elevation of liver function tests I am not sure what those values have been in the past All questions answered History of Present Illness Attending Physician: Uzair Hoyt, DO History of Present Illness This is an 85y F with a PMH of NSCLC who presented to the [facility] ED on 09/24/20 with abdominal pain, nausea/vomiting. Patient reports her abdominal pain started yesterday evening. She thought it was indigestion, but the pain continued to persist. She tried some gingerale without relief and then took some TUMS and ended up vomiting. Her pain was located in the epigastric region, off to the R side of the abdomen, and radiated into the back and she could not get comfortable. She describes the pain as pressure and someone sitting on her upper abdomen. She rates the pain a 7-8/10 at it's worse in severity. She presented to the ER for further evaluation due to ongoing symptoms. In the ER she underwent a CT a/p that revealed cholelithiasis with concern for acute cholecystitis. A RUQ US was also obtained that revealed cholelithiasis within a distended gallbladder. The bladder wall appears mildly thickened and edematous, and findings are suspicious for acute cholecystitis. Patient last ate yesterday around lunch which consisted of fried green tomatoes, regular tomatoes, and applesauce. She describes a history of indigestion, but never had severe pain like this before. She denies any diarrhea/constipation, fevers/ chills, or SOB. She has no prior abdominal surgical history. She recently completed a 6 week course of radiation for her lung cancer 2 weeks ago. Allergies Allergy/AdvReac Type Severity Reaction Status Date / Time cat dander Allergy itchy Verified 09/24/20 01:46 eyes, sneeze strawberry Allergy Anaphylaxis Verified 09/24/20 01:46 Home Medications Medication Instructions Recorded Confirmed Type ascorbic acid (vitamin C) 500 mg 500 mg PO DAILY cap 07/07/20 09/24/20 History capsule aspirin 81 mg chewable tablet 81 mg PO DAILY 07/07/20 09/24/20 History cranberry 500 mg capsule 500 mg PO DAILY cap 07/07/20 09/24/20 History zinc gluconate 50 mg tablet 50 mg PO DAILY 07/07/20 09/24/20 History nystatin-triamcinolone 100,000 1 applic TOPICAL QID #60 g 07/10/20 09/24/20 Rx unit/gram-0.1 % topical ointment fexofenadine 60 mg tablet (Josefa 60 mg PO DAILY tab 08/07/20 09/24/20 History Allergy) clobetasol 0.05 % topical ointment 1 applic TOPICAL BID #60 g 09/14/20 09/24/20 Rx cholecalciferol (vitamin D3) 25 25 mcg PO BID 09/24/20 09/24/20 History mcg (1,000 unit) tablet (Vitamin D3) metoprolol succinate 50 mg 50 mg PO DAILY 09/24/20 09/24/20 History tablet,extended release 24 hr olmesartan 40 mg tablet 40 mg PO DAILY 09/24/20 09/24/20 History vit C 250 mg-vit E 90 mg-zinc 40 1 tab PO QAM 09/24/20 09/24/20 History mg-copper 1 [id number] capsule (PreserVision AREDS-2) Patient History Medical History Arthritis Cataract (lens) fragments in eye following cataract surgery, bilateral Falls Hypertension Non-small cell lung cancer Skin cancer Surgical History H/O dilation and curettage Status post left breast lumpectomy Benign [place] teeth extracted Family History Denies family history of Ovarian cancer Breast cancer Colorectal cancer Social History Smoking Status: Never smoker Hx Alcohol Use: No Hx Substance Use: No Preferred Language: Azeri Communication Ability: Effective Hearing Ability: Hard of Hearing General Farm Manager Required: No Beliefs That Will Affect Care: None and Hoahaoism marital status: / Current Living Situation: Alone current occupational status: retired Other Information That Helps Us Care for You: No Feels Safe at Home: Yes Safety Concerns: Feels Safe At This Time Diet Comment: Avoids salad and dairy caffeine: Yes Dental Care, Regularly: Yes Physical Activity Frequency: 5-6 Times per Week Assistive Devices: Hearing Aid - Bilateral Review of Systems Constitutional: no fever and no chills Respiratory: no dyspnea Gastrointestinal: + abdominal pain, + belching, + nausea and + vomiting; no bloating and no change in bowel habits Musculoskeletal: pain radiating into back Physical Exam Physical Exam: awake/alert Constitutional: well developed and well nourished; no acute distress Respiratory: normal respiratory effort Gastrointestinal (Abdomen): Inspection/Auscultation: abdomen not distended Percussion/Palpation: + abdomen tender (ttp in epigatric and RUQ regions) and abdomen soft Results & Data ([facility]) Vital Signs (Past 12 Hours) Vital Signs Temp Pulse Pulse Resp BP BP Pulse Ox 09/24/20 07:29 36.5 C 84 16 143/77 H 95 09/24/20 04:34 36.6 C 72 16 137/80 96 09/24/20 04:01 84 93 09/24/20 02:24 87 163/90 H 98 09/24/20 01:03 87 97 09/24/20 00:58 84 157/80 H 98 09/24/20 00:21 36 C L 77 20 187/74 H [address] SCAN OF THE ABDOMEN AND PELVIS WITH IV CONTRAST CLINICAL HISTORY: Upper abdominal pain. COMPARISON STUDY: Abdominal ultrasound dated 09/24/2020. Chest CT dated 05/09/2020. PET CT dated 05/20/2020. TECHNIQUE: Following the IV administration of 95 cc of Optiray 320, CT scan of the abdomen and pelvis is performed from the lung bases to the proximal femora. Images are reviewed in the axial, sagittal, and coronal planes. IV contrast was administered without complication. A dose lowering technique was utilized adhering to the principles of ALARA. CT DOSE: 329.66 mGy.cm FINDINGS: Lung bases: The heart is normal in size and without pericardial effusion. The lung bases are clear noting bibasilar scarring/atelectasis. A small to moderate hiatal hernia is noted. Liver: The contrast-enhanced liver is normal in size, contour, and attenuation. There is no intrahepatic biliary ductal dilatation. The hepatic veins and portal veins are patent. Gallbladder: The gallbladder is distended and there are numerous gallstones. The gallbladder wall is thickened and edematous and there is pericholecystic stranding and fluid. Findings are consistent with acute cholecystitis. Spleen: Normal in size and attenuation. Pancreas: Unremarkable. Adrenal glands: Unremarkable. Kidneys: The contrast enhanced kidneys demonstrate cortical atrophy and are without hydronephrosis. Numerous renal sinus cysts are seen bilaterally. The kidneys enhance symmetrically. Abdominal vasculature: The abdominal aorta is normal in course and caliber noting moderate to advanced atherosclerotic calcification. Bowel: There is moderate colonic diverticulosis without CT evidence of acute diverticulitis. Mild fecal retention is seen throughout the colon. No bowel obstruction is identified. The appendix is well-visualized and normal. Peritoneum: There is no intraperitoneal free air or abdominal ascites. A 1.7 cm necrotic nodule is noted in the left upper quadrant anterior spleen on image #76. Lymphadenopathy: None. Pelvic viscera: The bladder, uterus, and adnexa are normal as visualized. Skeletal structures: The skeletal structures are osteopenic. There is moderate to advanced lumbosacral spondylosis. No lytic or blastic lesions are seen. IMPRESSION: 1. Cholelithiasis with acute cholecystitis. 2. There is a heterogeneous low-attenuation 1.7 cm nodule in the left upper quadrant adjacent to the splenic artery. This is pathologically indeterminant, and could represent thrombosed aneurysm, a metastatic deposit, or possibly an infarcted splenule. This was also seen on the 05/20/2020 PET examination and was not demonstrably FDG avid. 3. Colonic diverticulosis without CT evidence of acute diverticulitis. 4. Additional findings as above. ACT 112: Negative or not required by law. Electronically signed by: Mina Amor M.D. 09/24/2020 9:13 AM ULTRASOUND RIGHT UPPER QUADRANT ABDOMEN CLINICAL HISTORY: Epigastric abdominal pain. COMPARISON STUDY: Abdominal radiograph dated 09/24/2020. TECHNIQUE: Real-time, grayscale, and color flow sonography of the right upper quadrant of the abdomen was performed. Images are reviewed in the transverse and longitudinal planes. FINDINGS: Liver: The liver is normal in size and echotexture. There is no intrahepatic biliary ductal dilatation. The main portal vein is patent. Gallbladder: There are numerous shadowing calcified gallstones. The gallbladder is distended. The gallbladder wall appears mildly thickened and edematous measuring up to 4 mm. A sonographic Yin's sign is reportedly absent. The common bile duct measures up to 0.5 cm in diameter. Pancreas: Visualized portions of the pancreatic head and body are normal in appearance. The splenic vein is patent. Right kidney: Survey images of the right kidney demonstrate mild cortical atrophy. Echotexture is normal. There is no hydronephrosis. Ascites: None. IMPRESSION: Cholelithiasis within a distended gallbladder. The bladder wall appears mildly thickened and edematous, and findings are suspicious for acute cholecystitis. ACT 112: Negative or not required by law. Electronically signed by: Mina Amor M.D. 09/24/2020 6:53 AM PG Care Time/CCT Total # of Minutes Spent Total Time Spent with Patient: Total time spent is greater than 50% in coordination of care (as documented) at patient's floor/unit and/or counseling patient: Coding Level of Care Code 42124 Initial Inpt Care Lvl 1 Diagnoses Acute cholecystitis K81.0
--- NOTE | 2020-09-24 10:06 | Hospitalist Progress Note ---
Date of Service September 24, 2020 Assessment & Plan (1) Epigastric abdominal pain: Plan: Mrs. Wood is an 85 yo female with PMHx significant for non-small cell lung cancer (s/p RTx x6 weeks, will be starting chemotherapy soon) who was admitted to [facility] on 09/24 for acute-onset epigastric pain suspicious for cholecystitis +/- choledocholithiasis. Acute-onset Epigastric Pain Afebrile in the ED, CT/US showing cholelithiasis with biliary sludge and gallbladder distension and wall thickening; MRCP showing choledocholithiasis as well. No CBD dilatation although LFTs and TBili are up-trending. Lipase mildly elevated but downtrending. --> suspect cholecystitis and choledocholithiasis. - GI consulted for possible ERCP - appreciate recs (pending) - surgery consulted - appreciate recs - will hold on scheduling lap shu until GI decides on ERCP - Zosyn started on admission - continue for now - NPO at midnight for possible ERCP/lap shu tomorrow - PRN pain regimen: Toradol 15mg (mild) and Morphine 1mg (severe) - continue mIVFs with NSS @125cc/hr Non-Small Cell Cell Lung Cancer - s/p 6 week course of radiation at [facility] - has not yet begun chemo HTN, ?CAD No recorded history of HTN or CAD in our records. - held home Aspirin in setting of possible surgical intervention - continue home Toprol XL 50mg PO daily and Olmesartan 40mg PO daily DVT ppx: Lovenox Diet: NPO Dispo: Med/surg Code: Full code (2) Non-small cell lung cancer: (3) Total bilirubin, elevated: Admission and Anticipated Discharge Date Admission Date: September 24, 2020 Supervising Physician Co-Signing Physician Notes I personally examined the patient and verified all jewell points of history and exam, discussed case, and agree with decision making with Dr Blount Pain controlled with meds. Vitals noted. Resting comfortably somewhat fatigued no distress. Mild right upper quadrant tenderness with a little bit of voluntary guarding, no involuntary guarding/rigidity. Biliary diseasecholedocholithiasis and cholecystitisfor ERCP and cholec ystectomy. Currently stable. Otherwise as above. Subjective No acute events overnight. Patient reports acute-onset severe, colicky epigastric pain that lasted for several hours last night - symptoms started several hours after dinner. Denies associated fever/chills, N/V, diarrhea. Reports that pain is significantly improved since getting Morphine 4mg IV last night. However still has mild epigastric abdominal pain. Denies fever/chills, chest pain, palpitations, SOB, cough, N/V, diarrhea, rash. Review of Systems Review of Systems: All systems reviewed & are unremarkable except as noted in Subjective Physical Exam Physical Exam: General: A&Ox3. NAD. Cooperative. HEENT: Atraumatic, normocephalic. Pulm: CTAB A&P. -wheezes, -rales, -rhonchi. Symmetrical chest rise. No increase work of breathing. No respiratory distress. Cardiac: RRR, -mrg. Radial pulses intact and symmetrical. Abdominal: soft, non-tender, non-distended, BS x 4 Skin: warm, dry, no rash Results & Data Results & Data ([facility]) Vital Signs (Past 12 Hours) Vital Signs Temp Pulse Pulse Resp BP BP Pulse Ox 09/24/20 07:29 36.5 C 84 16 143/77 H 95 09/24/20 04:34 36.6 C 72 16 137/80 96 09/24/20 04:01 84 93 09/24/20 02:24 87 163/90 H 98 09/24/20 01:03 87 97 09/24/20 00:58 84 157/80 H 98 09/24/20 00:21 36 C L 77 20 187/74 H 98 Resident Activity Tracking Resident Involvement: Resident Care Provided Care Provided: Adult Hospital Medicine
--- NOTE | 2020-09-24 13:43 | Magnetic Resonance Report ---
MRCP CLINICAL HISTORY: Cholecystitis. Generalized abdominal pain. Nausea and vomiting. COMPARISON STUDY: Abdominal CT and abdominal ultrasound performed the same day 09/24/2020. TECHNIQUE: Abdominal MRCP is performed utilizing various T2-weighted sequences in the axial and coron al planes. 3-D reformats are created and assessed. IV contrast was not administered for this examinat ion. The examination is degraded by motion artifact. FINDINGS: The gallbladder is distended and filled with gallstones. The gallbladder wall is thickened and edemat ous and there is pericholecystic inflammation and fluid. Findings are consistent with acute cholecyst itis. There is no intra or extrahepatic biliary ductal dilatation. The common bile duct measures up t o 3 mm in diameter. There is a 4 mm intraluminal filling defect within the mid common bile duct, best seen on coronal MRCP image #104. This is consistent with choledocholithiasis. An additional defect/m eniscus is suggested at the ampulla. An additional distal obstructing common duct stone is not exclud ed. The pancreatic duct is normal in caliber. The unenhanced liver, spleen, and adrenal glands are grossly normal. A subcentimeter lipoma is noted in the pancreatic head/uncinate. The pancreas is otherwise normal as imaged. The kidneys demonstrate mild cortical atrophy. Renal sinus cysts are present bilaterally. There is trace perihepatic ascites. No bowel obstruction is seen. The abdominal aorta is normal in caliber. There are trace pleural effu sions. A left upper lobe lung mass is suggested on the flight test supervisor sequence. IMPRESSION: 1. Cholelithiasis with acute cholecystitis. 2. There is no intra or extrahepatic biliary ductal dilatation. 3. A 4 mm intraluminal filling defect within the mid common bile duct likely represents choledocholit hiasis. An additional stone in the distal common bile duct is not excluded. 4. There is no MRI evidence of pancreatitis. 5. Trace perihepatic ascites and small pleural effusions. 6. A left upper lobe lung mass is suggested on the flight test supervisor sequence. This was better assessed on prior outside imaging studies. Dictated: 09/24/2020 12:48 PM Transcribed: 09/24/2020 1:38 PM Afsaneh [id number] [email or web address] Electronically signed by: Mina Amor M.D. 09/24/2020 1:42 PM
[2020-09-24] MEDS ORDERED: Nursing to Pharmacy Communication SCH (15:30)
[2020-09-24] MEDS: METOPROLOL SUCC 50MG EXT REL TAB PO SCH (15:43)
[2020-09-24] MEDS: KETOROLAC TROMETHAMINE 15 MG/ML VIAL IV PRN (21:30)
[2020-09-25] MEDS: SODIUM CHLORIDE 0.9% 1000ML 1,000 ML IV SCH ×3 (00:03→18:39)
[2020-09-25] MEDS: PIPERACILLIN/TAZOBACTAM 3.375 GM in DEXTROSE 5% 100 ML IV SCH ×3 (00:03→16:43)
[2020-09-25 07:07] LABS: Eosinophils # (auto) 0.05 K/uL (0-0.5); Eosinophils % (auto) 1.9 %; Hematocrit (blood only) 36.1 % (37-47); Hemoglobin 12.2 g/dL (12.0-16.0); Immature Granulocytes # (auto) 0.01 K/uL (0.00-0.02); Immature Granulocytes % (auto) 0.4 %; Lymphocytes # (auto) 0.55 K/uL (1.2-3.4); Lymphocytes % (auto) 20.6 %; Mean Corpuscular Hemoglobin 30.1 pg (25-34); Mean Corpuscular Hgb Conc 33.8 g/dL (32-36); Mean Corpuscular Volume 89.1 fL (80-100); Mean Platelet Volume 10.2 fL (7.4-10.4); Monocytes # (auto) 0.34 K/uL (0.11-0.59); Monocytes % (auto) 12.7 %; Neutrophils # (auto) 1.72 K/uL (1.4-6.5); Neutrophils % (auto) 64.4 %; Platelet Count 110 K/uL (130-400); RDW Coefficient of Variation 13.7 % (11.5-14.5); RDW Standard Deviation 45.2 fL (36.4-46.3); Red Blood Count 4.05 M/uL (4.2-5.4); White Blood Count 2.67 K/uL (4.8-10.8)
[2020-09-25 07:27] VITALS: O2SAT 97
[2020-09-25 07:41] LABS: Albumin Level 2.6 gm/dl (3.4-5.0); BUN Creatinine Ratio 12.5 (10-20); Calcium 8.3 mg/dl (8.5-10.1); Creatinine Clr Calc Pharmacy 54.8 ml/min; Est GFR (African American) 93.8 ml/min; Magnesium 1.5 mg/dl (1.8-2.4); Potassium 3.6 mmol/L (3.5-5.1)
[2020-09-25 07:50] LABS: Albumin Globulin Ratio 0.7 (0.9-2); Bilirubin,Total 7.5 mg/dl (0.2-1); Globulin 3.6 gm/dl (2.5-4.0); Phosphorus 1.9 mg/dl (2.5-4.9); Total Protein 6.2 gm/dl (6.4-8.2)
--- NOTE | 2020-09-25 08:04 | Surgery Progress Note ---
Date of Service September 25, 2020 Assessment & Plan (1) Acute cholecystitis: Plan: MRCP confirmed choledocholithiasis LFT's elevated this AM, Tb: 7.5, AST: 212, ALT: 236, AlkP: 204 Complaints of abdominal discomfort in epigastric and RUQ regions Will await GI consultation, pending on plans for ERCP we can see if we can coordinate our schedules today, if not we may be able to plan on lap shu tomorrow. Keep patient NPO Pt seen and examined with Dr. Monique Admission and Anticipated Discharge Date Admission Date: September 24, 2020 Supervising Physician Co-Signing Physician Notes I personally examined the patient and verified all jewell points of history and exam, discussed case, and agree with decision making with Dr Blount Pain controlled with meds. Vitals noted. Resting comfortably somewhat fatigued no distress. Mild right upper quadrant tenderness with a little bit of voluntary guarding, no involuntary guarding/rigidity. Biliary diseasecholedocholithiasis and cholecystitisfor ERCP and cholecystectomy. Currently stable. Otherwise as above. Subjective Patient says she did not sleep great last night. Still having some abdominal discomfort. Physical Exam Physical Exam: awake/alert Gastrointestinal (Abdomen): Percussion/Palpation: + abdomen tender (ttp in epigastric and RUQ region) and abdomen soft Results & Data ([facility]) Vital Signs (Past 12 Hours) Vital Signs Temp Pulse Resp BP BP Pulse Ox 09/25/20 07:26 36.8 C 74 15 188/95 H 97 09/24/20 22:50 36.6 C 85 14 160/81 H 95 09/24/20 21:11 76 187/91 H 188/82 H PG Care Time/CCT Total # of Minutes Spent Total Time Spent with Patient: Total time spent is greater than 50% in coordination of care (as documented) at patient's floor/unit and/or counseling patient: Coding Level of Care Code 04425 Subseq Hosp Care Lvl 1 Diagnoses Acute cholecystitis K81.0
[2020-09-25] MEDS ORDERED: POTASSIUM PHOS 3 MMOL/1 ML INFUSION IV STA (08:12)
[2020-09-25] MEDS: OLMESARTAN MEDOXOMIL 40 MG TAB PO SCH (08:15)
--- NOTE | 2020-09-25 08:18 | Hospitalist Progress Note ---
Date of Service September 25, 2020 Assessment & Plan Admission and Anticipated Discharge Date Admission Date: September 24, 2020 Results & Data Results & Data ([facility]) Vital Signs (Past 12 Hours) Vital Signs Temp Pulse Resp BP BP Pulse Ox 09/25/20 07:26 36.8 C 74 15 188/95 H 97 09/24/20 22:50 36.6 C 85 14 160/81 H 95 09/24/20 21:11 76 187/91 H 188/82 H
[2020-09-25] MEDS ORDERED: POTASSIUM PHOSPHATE 6 MMOL in 0.9 % SODIUM CHLORIDE 100 ML IV ONE (08:30)
[2020-09-25] MEDS: MAGNESIUM SULFATE / D5W 1 GM/100 ML BAG IV SCH ×2 (10:16→12:12)
[2020-09-25] MEDS: KETOROLAC TROMETHAMINE 15 MG/ML VIAL IV PRN ×2 (10:23→16:25)
--- NOTE | 2020-09-25 10:35 | Communication Note ---
Date of Service: September 25, 2020 Discussed w/ attending. Discussed w/ gen surgery DMITRI Discussed w/ nursing staff, Lore Flowers Discussed w/ Dr Powell and TT sent to Dr. Mckeon. Unfortunately we do not have any biliary coverage. MRCP concerning for filling defect. Would recommend transfer to a tertiary center that can provide ERCP. Please contact me for any questions or concerns.
--- NOTE | 2020-09-25 15:33 | Discharge Summary ---
Date of Service September 25, 2020 Admission HPI Per Admitting Provider Mrs. Solano is an 85 yo woman who came to the [facility] ED for evaluation of epigastric pain that began around 8pm last night, several hours after eating dinner. She tried taking TUMS for relief, but later had an episode of nausea and vomiting. She denies an associated diarrhea. She states that she was in her usual state of health until the discomfort started - no preceding fevers/chills, congestion, cough, generalized weakness, diarrhea. She denies any history of pancreatitis or other GI medical problems. No previous abdominal surgeries. Of note, she is currently undergoing treatment for non-small cell lung cancer. She completed 6 weeks of radiation - will be starting chemo in the near future. She had the radiation done at our cancer center - although it is under the direction of her oncologist in [place], [place]. She denies any eoth use. In the ED, she was afebrile with normal HR. BP was 163/90. Breathing well on room air. CBC unremarkable. Coags WNL. Kidney function and electrolytes WNL. UA showing + blood, + bilirubin, neg nitrate, trace LE, neg bacteria. AST elevated to 179, ALT to 107, Alk phos at 224, t bili at 2.3. Lipase elevated to 684. Troponin undetectable. COVID 19 neg. EKG showing NSR with inferior T wave inversions, no ectopy. CXR showing a mass in the left upper lung lobe (location of known cancer). US of gallbladder Admission Exam Per Admitting Provider Constitutional: WD/WN, vitals as above cooperative; no acute distress Eyes: + anicteric sclerae ENMT: external ear and nose normal, oropharynx normal Ears: + hearing impairment Neck: trachea midline Respiratory: normal respiratory effort, lungs clear to auscultation no cough Cardiovascular: RRR, no murmur, no edema Heart Sounds: normal S1 Extremities: no pedal edema Gastrointestinal (Abdomen): Inspection/Auscultation: abdomen normal to inspection and normal bowel sounds; abdomen not distended Percussion/Palpation: + abdomen tender (RUQ, epigastrium) and abdomen soft; no guarding Musculoskeletal: Head/Neck/Chest: normocephalic and head atraumatic Skin: no rashes, warm and dry Neurologic: moves all extremities Psychiatric: A+Ox3, euthymic affect Principal Diagnosis Cholecystitis/Choledocholithiasis Discharge Exam General: A&Ox3. NAD. Cooperative. HEENT: Atraumatic, normocephalic. Pulm: CTAB A&P. -wheezes, -rales, -rhonchi. Symmetrical chest rise. No increase work of breathing. No respiratory distress. Cardiac: RRR, -mrg. Radial pulses intact and symmetrical. Abdominal: soft, mild epigastric tenderness, non-distended, BS x 4 Skin: warm, dry, no rash Discharge Data Allergies Allergy/AdvReac Type Severity Reaction Status Date / Time cat dander Allergy itchy Verified 09/24/20 01:46 eyes, sneeze strawberry Allergy Anaphylaxis Verified 09/24/20 01:46 Consultations 09/24/20 02:39 ED Decision to Admit Stat 09/24/20 09:47 Consult General Surgery Routine 09/25/20 10:18 Consult Gastroenterology Routine 09/25/20 11:17 Burn CD for patient Routine Ordered Studies 09/24/20 01:09 US gallbladder Urgent 09/24/20 02:46 CT abd pelvis IV con only Urgent 09/24/20 07:46 MR MRCP Urgent Hospital Course (1) Epigastric abdominal pain: Mrs. Wood is an 85 yo female with PMHx significant for non-small cell lung cancer (s/p RTx x6 weeks, will be starting chemotherapy soon) who was admitted to [facility] on 09/24 for acute-onset epigastric pain suspicious for cholecystitis +/- choledocholithiasis. Acute-onset Epigastric Pain Afebrile in the ED, CT/US showing cholelithiasis with biliary sludge and gallbladder distension and wall thickening; MRCP showing choledocholithiasis as well. No CBD dilatation although LFTs and TBili were up-trending at time of transfer. - GI consulted for possible ERCP -- not able to be done by prospecting observer on service this week so patient requiring transfer for ERCP at tertiary care facility - [facility] - appreciate recs - Had recommended lap shu but not done as ERCP needed as well as above - Zosyn started on admission - continue - Patient remained NPO throughout day of transfer (09/25/20) - PRN pain regimen: Toradol 15mg (mild) and Morphine 1mg (severe) - mIVFs with NSS @125cc/hr Non-Small Cell Cell Lung Cancer - s/p 6 week course of radiation at [facility] - has not yet begun chemo HTN, ?CAD No recorded history of HTN or CAD in our records. - held home Aspirin in setting of possible surgical intervention - continue home Toprol XL 50mg PO daily and Olmesartan 40mg PO daily DVT ppx: Lovenox Diet: NPO Dispo: Med/surg Code: Full code (2) Non-small cell lung cancer: (3) Total bilirubin, elevated: Total Time Total Time Spent Total Time Spent (In Minutes): see attending attestation Discharge Plan Discharge Items Patient Disposition: Transfer Acute Care Hospital Reason For Visit: PANCREATITIS Discharge Diagnosis: acute cholecystitis & choledocholithiasis Condition on Discharge: Good Activity: Per Instructions section Non-emergency contact: Primary Care Provider Call non-emergency contact if: you have any medication questions, your symptoms worsen, your pain is not controlled, your pain is worsening, your pain is concerning for you, you have a fever and your temperature is above 101.5 Follow-up/Referrals: Stanton Braga, [Primary Care Provider] - Diet: Nothing by Mouth Addtl Attending Provider Instructions: You were admitted to [facility] due to abdominal pain that was found to be caused by cholecystitis, or inflammation of your gallbladder, as well as choledocholithiasis, a gallstone in the duct that empties your gallbladder. As such, you were considered to require surgery for removal of your gallbladder as well as an ERCP, which is a procedure done to open the bile duct and remove the stone. Unfortunately, our gastroenterology team did not have a physician available who does the ERCP and so, you will be transferred to another facility for your procedures. In the interim between your admission and your transfer, we gave you intravenous antibiotics as well as pain medication as needed. Pending Studies at Discharge: Yes Studies:: surgical pathology Stand-Alone Forms: My [facility] Skilled Items Patient informed of condition?: Yes DNR: No Discharge Level of Care: Other Communicable Disease: No Discharge Prognosis: Other Lines: Peripheral IV Urinary Catheter: No Medications and DC Order Prescriptions: New ketorolac 15 mg/mL Solution 15 mg IV Q6H PRN (Reason: pain) Qty: 1 RF: 0 ondansetron HCl (PF) 4 mg/2 mL Solution 4 mg IV Q6H PRN (Reason: nausea and vomiting) Qty: 2 RF: 0 morphine 2 mg/mL Syringe 1 mg IV Q30M PRN (Reason: pain) Qty: 1 RF: 0 Continued fexofenadine [Josefa Allergy] 60 mg tablet 60 mg PO DAILY RF: 0 nystatin-triamcinolone 100,000-0.1 unit/gram-% ointment 1 applic topical QID Qty: 60 RF: 3 Hold Instructions: Home Medication placed on hold at Doctor's office clobetasol 0.05 % ointment 1 applic topical BID Qty: 60 RF: 3 metoprolol succinate 50 mg tablet extended release 24 hr 50 mg PO DAILY RF: 0 olmesartan 40 mg tablet 40 mg PO DAILY RF: 0 Discontinued ascorbic acid (vitamin C) 500 mg capsule 500 mg PO DAILY RF: 0 cranberry 500 mg capsule 500 mg PO DAILY RF: 0 zinc gluconate 50 mg tablet 50 mg PO DAILY RF: 0 aspirin 81 mg tablet,chewable 81 mg PO DAILY RF: 0 cholecalciferol (vitamin D3) [Vitamin D3] 25 mcg (1,000 unit) Tablet 25 mcg PO BID RF: 0 PreserVision AREDS-2 250-90-40-1 mg Capsule 1 tab PO QAM RF: 0 Discharge Orders: Discharge Order (Routine); Ordered 09/25/20 Ordered By: Oskar Powell Admission Data Admit Date/Time: 09/25/20 13:03 Attending Provider: Alexis Mckeon Admit Provider: Rajani Osorio Primary Care Provider: Stanton Braga Other Providers: Franky Deleon ; Kb Monique ; India Carias Supervising Physician Co-Signing Physician Notes Patient seen and examined with PGY-2 Dr. Ramirez. Agree with history, exam findings, assessment and plan of care as outlined. In brief, Ms. Wood is a 85 year old female with hx of NSCLC admitted with right upper quadrant and epigastric pain. Today, continues to have some pain in the epigastric area. Has been NPO for anticipated procedure. Vital signs and nursing notes reviewed. Heart with regular rate the rhythm. No peripheral edema. Abdomen with normal bowel sounds. Nondistended. Tender in the epigastric and RUQ. Labs and imaging reviewed. 1. Acute cholecysitis and choledocholithiasis. CT/US with cholelithiasis with biliary sludge and GB distention and wall thickening on admission. MRCP yesterday with cholelithiasis with acute cholecystitis. 4mm intraluminal filling defect within the mid-common bile duct likely representing choledocholithiasis. Continue zosyn. Elevated LFTs and elevated T. Bili. Appreciate general surgery recommendations. Unfortunately, the interventional GI who can do ERCP here is not available this week and patient will need to be transferred to tertiary care center. Patient has been accepted for transfer to [facility] (general surgery as primaryDr. Thomas Norton with medicine and GI consult) 2. HTN. Continue home Toprol XL 50mg daily and olmesartan 40mg daily. 3. NSCLC. s/p radiation. No chemo yet. Dispo: transfer to [facility] today. Accepted and bed available. 90 minutes spent discharge planning for this patient including time spent discussing case with specialists here and at tertiary facilities to find an accepting facility. Resident Activity Tracking Resident Involvement: Resident Care Provided Care Provided: Adult Hospital Medicine
[2020-09-25 15:35] VITALS: TEMP 97.2
[2020-09-25] MEDS: METOPROLOL SUCC 50MG EXT REL TAB PO SCH (20:14)
[2020-09-25 20:16] VITALS: BP 195/99; PULSE 77
--- NOTE | 2020-09-26 10:29 | Billing Data ---
Date of Service September 26, 2020 Coding Level of Care Code 95695 Initial Inpt Care Lvl 2
== END 2020-09-25 20:28 | disposition short-term general hospital (02) | DRG 444 ==
LOC: 3N 00:18 → ED 00:18 → SUATTDRO 03:12 → 3N 04:02